=== PATIENT | female | born 1955 | race Caucasian/White ===

== ENCOUNTER → 2021-03-16 12:10 | Outpatient (CLI) | payer OTHER, SELFPAY ==
--- NOTE | ~2021-03-16 | DEXA_ITS ---
Bone Density Report Name: Maile Romero Age: 65 Sex: Female Ethnicity: White Date of : 1955 Indication: postmenopausal; screening for osteoporosis; height loss; Referring Provider: VANI REBOLLEDO Study: Bone densitometry was performed. Exam Date: March 16, 2021 Accession number: [id number] Bone Density: Region BMD T-score Z-score Classification AP Spine (L1-L4) 1.326 2.5 4.2 Normal Femoral Neck (Left) 0.933 0.8 2.2 Normal Total Hip (Left) 1.213 2.2 3.4 Normal Femoral Neck (Right) 0.943 0.8 2.3 Normal Total Hip (Right) 1.135 1.6 2.7 Normal Total Hip Mean 1.174 1.9 3.1 Normal World Health Organization criteria for BMD impression classify patients as: Normal (T-score at or above -1.0), Osteopenia (T-score between -1.0 and -2.5), or Osteoporosis (T-score at or below -2.5). 10-year Fracture Risk: FRAX not reported because: All T-scores for Spine Total, Hip Total, Femoral Neck at or above -1.0 Previous Exams: Region Exam Age BMD T-score BMD Change BMD Change Date g/cm2 vs Baseline vs Previous AP Spine(L1-L4) 03/16/2021 65 1.326 2.5 0.002 0.021 10/12/2016 61 1.305 2.3 -0.019 -0.010 10/05/2013 58 1.315 2.4 -0.009 -0.009 09/19/2010 55 1.323 2.5 Total Hip(Left) 03/16/2021 65 1.213 2.2 -0.077 -0.047* 10/12/2016 61 1.260 2.6 -0.030 -0.004 10/05/2013 58 1.264 2.6 -0.025 -0.025 09/19/2010 55 1.289 2.8 Total Hip(Right) 03/16/2021 65 1.135 1.6 0.029 0.003 10/12/2016 61 1.131 1.6 0.025 0.002 10/05/2013 58 1.129 1.5 0.023 0.023 09/19/2010 55 1.106 1.3 *Denotes significance at 95% confidence level, LSC for AP Spine = 0.022 g/cm2, LSC for Total Hip = 0.027 g/cm2 Clinical Information Provided by Patient: Has used the following medications: Vitamin D Patient maximum height was 67.5 Menopause Age: 54 No regular weight bearing exercise Does not regularly consume dairy products Drinks caffeinated beverages Onset of menses at age 14 Number of children 1 Impression: The patient has normal bone mass. The BMD for the Total Hip(Left) decreased, changing by -0.047 since the last DXA exam. Discussion: LOW RISK OF FRACTURE; BONE DENSITY IS WELL ABOVE THE MINIMUM DESIRABLE LEVEL AND ABOVE AVERAGE FOR AGE AND SEX AT
== END ==
PROVIDERS: Visit Provider Obstetrics & Gynecology Gynecology
DX: Z78.0 Asymptomatic menopausal state (principal)
CPT/HCPCS: 77080